=== PATIENT | female | born 1970 | race African-American/Black ===

== ENCOUNTER 2017-03-17 12:23 | Emergency (ER) | payer OTHER ==
[~2017-03-17] VITALS: Ht 170.2 cm; Wt 63.5 kg
--- NOTE | 2017-03-17 12:53 | NUR ---
Patient discharged to home in stable conditon. Written and verbal after care instructions given. Patient verbalizes understanding of instructions.
== END 2017-03-17 12:54 | disposition home or self-care (01) ==
LOC: ER 12:23
DX: R00.2 Palpitations (principal); F17.210 Nicotine dependence, cigarettes, uncomplicated
CPT/HCPCS: 93005; A4663